=== PATIENT | male | born 1965 | race Caucasian/White ===

== ENCOUNTER 2019-01-06 06:16 | Day surgery (SDC) | payer OTHER ==
[~2019-01-06] VITALS: Ht 177.8 cm; Wt 85.3 kg
[2019-01-06 07:22] VITALS: Ht 177.8 cm; Wt 85.3 kg
[2019-01-06] MEDS ORDERED: GEMF600T PO (07:32)
[2019-01-06 07:41] VITALS: BP 122/78; PULSE 64; RESP 18
[2019-01-06] MEDS ORDERED: FENTAnyl 50 MCG/ML VIAL ONE (08:37)
[2019-01-06] MEDS ORDERED: MIDAZOLAM 1 MG/ML 2 ML INJ ONE ×3 (08:37)
[2019-01-06 09:00] VITALS: BP 111/75; PULSE 56; RESP 10
== END 2019-01-06 14:09 | disposition home or self-care (01) ==
LOC: GIL 06:16
PROVIDERS: ATTEND Internal Medicine Gastroenterology
DX: Z12.11 Encounter for screening for malignant neoplasm of colon (principal); K64.8 Other hemorrhoids; K57.30 Diverticulosis of large intestine without perforation or abscess without bleeding
CPT/HCPCS: 45378; J2250; J3010